=== PATIENT | female | born 1970 | race Caucasian/White ===

== ENCOUNTER 2023-12-15 08:24 | Outpatient (CLI) | payer OTHER ==
[2023-12-15 09:30] LABS: #Basophils 0.04 10x3/uL (0.0-0.2); #Eosinophils 0.09 10x3/uL (0.0-0.5); #Monocytes 0.38 10x3/uL (0.0-1.1); %Basophils 0.7 % (0.0-2.0); %Eosinophils 1.5 % (0.0-6.0); %Lymphocytes 21.1 % (18.0-47.0); %Monocytes 6.5 % (0.0-10.0); %Neutrophils 69.9 % (40.0-75.0); Hematocrit 44.8 % (34.9-44.5); Hemoglobin 14.7 g/dL (12.0-15.5); Mean Corpuscular HGB CONC 32.8 g/dL (32.0-36.0); Mean Corpuscular Hemoglobin 29.3 pg (27.0-33.0); Mean Corpuscular Volume 89.4 fL (81.6-98.3); Mean Platelet Volume 10.1 fL (7.4-10.4); Platelet Count 289 10x3/uL (150-450); RBC Distribution Width 12.8 % (11.5-14.5); Red Blood Cell (RBC) Count 5.01 10x6/uL (3.90-5.03); White Blood Cell (WBC) Count 5.9 10x3/uL (3.5-10.5)
[2023-12-15 09:57] LABS: Anion Gap 14 mmol/L (10-20); BUN (Urea Nitrogen) 20 mg/dL (9.8-20.1); Calc. Creatinine Clearance 0 mL/min (70-130); Calcium 9.7 mg/dL (7.8-10.44); Carbon Dioxide 26 mmol/L (22-29); Chloride 104 mmol/L (98-107); Estimated GFR 76; Glucose 164 mg/dL (70-105); Potassium 4.2 mmol/L (3.5-5.1); Sodium 140 mmol/L (136-145)
[2023-12-15 12:51] LABS: Hemoglobin A1c 6.6 % (4.0-6.0)
== END 2023-12-15 08:25 | disposition home or self-care (01) ==
LOC: CSHLAB 08:24
PROVIDERS: ATTEND Surgery
DX: Z01.818 Encounter for other preprocedural examination (principal); K63.89 Other specified diseases of intestine; R94.31 Abnormal electrocardiogram [ECG] [EKG]
CPT/HCPCS: 80048; 83036; 85025; 93005; 93010

== ENCOUNTER 2023-12-15 08:30 | Inpatient (IN) | payer OTHER ==
[2023-12-20] MEDS ORDERED: Midazolam HCl 2 mg/2 ml Vial ONE ×2 (10:35→10:57)
[2023-12-20] MEDS ORDERED: fentaNYL 50 mcg/mL 1 mL Vial ONE ×4 (10:35→14:34)
[2023-12-20] MEDS ORDERED: Bupivacaine 0.25% HCL 30 ML VIAL ONE ×2 (10:35→10:37)
[2023-12-20] MEDS ORDERED: Lidocaine 1% PF 5 ML VIAL ONE (10:37)
[2023-12-20] MEDS ORDERED: Bupivacaine/Epinephrine 0.25% 30 ML VIAL ONE (10:40)
[2023-12-20] MEDS ORDERED: Famotidine/PF 20 mg/2ml Vial ONE (10:57)
[2023-12-20] MEDS ORDERED: PROPOFOL 20 ML ONE (11:03)
[2023-12-20] MEDS ORDERED: Lidocaine 2% PF 5 ML VIAL ONE (11:03)
[2023-12-20] MEDS ORDERED: Rocuronium Bromide 10 MG/ML (10ML VIAL) ONE (11:08)
[2023-12-20] MEDS ORDERED: ceFOXitin 1 GM VIAL ONE (11:16)
[2023-12-20] MEDS ORDERED: SUGAMMADEX SODIUM 200 MG/2 ML VIAL ONE (13:36)
[2023-12-20] MEDS ORDERED: Dexamethasone 4 mg/ml Vial ONE (13:36)
[2023-12-20] MEDS ORDERED: Ondansetron PF 4 MG/2 ML Vial ONE (13:37)
[2023-12-20] MEDS ORDERED: Ipratropium/Albuterol 3 ML NEB NEB PRN (14:07)
[2023-12-20] MEDS ORDERED: oxyCODONE 5 MG TAB PO PRN (14:07)
[2023-12-20] MEDS ORDERED: Naloxone HCl 0.4 mg/ml Vial IVP PRN (14:07)
[2023-12-20] MEDS ORDERED: Promethazine HCl 25 MG/ML VIAL IM PRN (14:07)
[2023-12-20] MEDS ORDERED: Promethazine HCl 25 MG/ML VIAL ONE (14:13)
[2023-12-20] MEDS: hydrALAZINE 20 MG/ML VIAL SLOW IVP PRN (15:45)
[2023-12-20] MEDS: Sodium Chloride 0.9% 1,000 ML IV SCH (16:22)
[2023-12-20] MEDS: Acetaminophen 500 MG TAB PO SCH ×2 (16:32→18:10)
[2023-12-20] MEDS: Morphine 4 MG/ML VIAL SLOW IVP PRN (16:52)
[2023-12-20] MEDS: Ketorolac Tromethamine 30 MG (1 mL) VIAL IVP SCH (18:44)
[2023-12-20] MEDS: traMADol HCl 50 MG TAB PO SCH (18:45)
[2023-12-20] MEDS: FLU (Fluarix Triv) TS24-25(6MOS UP)/PF 45 MCG/0.5 ML Syringe IM ONE (18:46)
[2023-12-20] MEDS: Insulin Lispro 100 UNIT/ML 10 ML VIAL SC PRN (19:03)
[2023-12-20] MEDS: Ondansetron PF 4 MG/2 ML Vial IVP PRN (20:36)
[2023-12-20] MEDS: cefOXitin Sodium 1 GM in Sodium Chloride 0.9% 100 ML IVPB SCH (20:38)
[2023-12-20] MEDS: Famotidine/PF 20 mg/2ml Vial SLOW IVP SCH (20:39)
[2023-12-20] MEDS: Famotidine 20 MG TAB PO SCH (20:39)
[2023-12-21 04:51] LABS: Anion Gap 15 mmol/L (10-20); BUN (Urea Nitrogen) 10 mg/dL (9.8-20.1); Calc. Creatinine Clearance 107 mL/min (70-130); Calcium 8.6 mg/dL (7.8-10.44); Carbon Dioxide 20 mmol/L (22-29); Chloride 105 mmol/L (98-107); Estimated GFR 79; Glucose 186 mg/dL (70-105); Potassium 4.1 mmol/L (3.5-5.1); Sodium 136 mmol/L (136-145)
[2023-12-21 04:54] LABS: #Basophils 0.03 10x3/uL (0.0-0.2); #Monocytes 1.25 10x3/uL (0.0-1.1); #Neutrophils 11.89 10x3/uL (1.5-8.4); %Basophils 0.2 % (0.0-2.0); %Lymphocytes 8.4 % (18.0-47.0); %Monocytes 8.6 % (0.0-10.0); %Neutrophils 82.2 % (40.0-75.0); Hematocrit 43.7 % (34.9-44.5); Hemoglobin 14.2 g/dL (12.0-15.5); Mean Corpuscular HGB CONC 32.5 g/dL (32.0-36.0); Mean Corpuscular Hemoglobin 29.6 pg (27.0-33.0); Mean Corpuscular Volume 91.2 fL (81.6-98.3); Mean Platelet Volume 9.9 fL (7.4-10.4); Platelet Count 299 10x3/uL (150-450); RBC Distribution Width 13.1 % (11.5-14.5); Red Blood Cell (RBC) Count 4.79 10x6/uL (3.90-5.03); White Blood Cell (WBC) Count 14.5 10x3/uL (3.5-10.5)
[2023-12-21] MEDS: Enoxaparin 40 MG (0.4 mL) SYRINGE SC SCH (09:44)
[2023-12-21 11:19] VITALS: BMI 33.9
[2023-12-21] MEDS: Hydrochlorothiazide 25 MG TAB PO SCH (12:36)
[2023-12-21] MEDS: Losartan 50 MG TAB PO SCH (12:36)
[2023-12-22 11:48] VITALS: BP 130/78; TEMP 98.7
== END 2023-12-22 11:45 | disposition home or self-care (01) | DRG 331 ==
LOC: CSHTELE 12-20 08:39
PROVIDERS: ADMIT Surgery; ATTEND Surgery
PROC: 0DTF4ZZ Resection of Right Large Intestine, Percutaneous Endoscopic Approach (ICD-10-PCS; principal; 2023-12-20)
DX: K63.89 Other specified diseases of intestine (principal); Z79.899 Other long term (current) drug therapy; E11.9 Type 2 diabetes mellitus without complications; I10 Essential (primary) hypertension; Z98.890 Other specified postprocedural states
CPT/HCPCS: 36415; 36416; 80048; 85025; 88309; 94762; J0360; J0665; J0694; J1100; J1650; J1815; J1885; J2250; J2272; J2405; J2550; J2704; J3010; J3490; J7030; S2900